=== PATIENT | female | born 1945 | race Caucasian/White ===

== ENCOUNTER 2020-06-11 13:18 | Inpatient (IN) | payer MEDICARE, OTHER ==
[~2020-06-11 13:18] MED LIST: ACETAMINOPHEN-1 EAC1 PO; ALDACTONE25 MG PO; ARICEPT5 MG PO; ASPIR 8181 MG PO; ASPIRIN CHEWABL81 MG PO; CEFUROXIME250 MG PO; COREG6.25 MG PO; ELIQUIS 5 MG TAB5 MG PO; FERROUS SULFAT325 M2 PO; FLAGYL500 MG PO; HYDROCODON-ACE1 EAC4 PO; ISOSORBIDE MONO30 MG PO; LASIX40 MG PO; LEVAQUIN500 MG PO; LIPITOR TAB 2020 MG PO; LISINOPRIL2.5 MG PO; LOPRESSOR 25 MG25 MG PO; LOPRESSOR 50 MG50 MG PO; MELATONIN10 M2 PO; METHYLPHENIDATE10 M1 PO; NORVASC 5 MG TAB5 MG PO; NUVIGIL250 MG PO; PEPCID20 MG PO; PHENERGAN 12.12.5 M1 PO; PREDNISONE50 MG PO; PROTONIX 40 MG40 M1 PO; RITALIN LA20 MG PO; TESSALON PERLE100 MG PO; TOFRANIL 50 MG50 MG PO; TOFRANIL50 MG PO; TYLENOL W/CODEIN1 E1 PO; VENTOLIN HFA 66.7 GM INH; VIBRAMYCIN100 MG PO; ZANTAC150 MG PO; ZYRTEC10 MG PO
[2020-06-11 15:38] LABS: HEMOGLOBIN 10.9 gm/dl (12.3-15.3); RED BLOOD COUNT 3.42 M/UL (4.00-5.10); WHITE BLOOD COUNT 8.4 K/UL (4.5-11.0)
[2020-06-11 16:00] LABS: BUN/CREATININE RATIO 20 (0-10)
[2020-06-12 05:21] LABS: BUN/CREATININE RATIO 24 (0-10)
[2020-06-12 05:30] LABS: HEMOGLOBIN 9.1 gm/dl (12.3-15.3)
[2020-06-13 14:47] LABS: HEMOGLOBIN 10.1 gm/dl (12.3-15.3); RED BLOOD COUNT 3.18 M/UL (4.00-5.10); WHITE BLOOD COUNT 7.3 K/UL (4.5-11.0)
[2020-06-14 04:26] LABS: HEMOGLOBIN 9.4 gm/dl (12.3-15.3); RED BLOOD COUNT 2.98 M/UL (4.00-5.10); WHITE BLOOD COUNT 7.7 K/UL (4.5-11.0)
[2020-06-14] MEDS ORDERED: LASIX40 MG PO (12:54)
== END 2020-06-14 15:30 | disposition home or self-care (01) | DRG 683 ==
LOC: ER1 13:18 → M/S 21:26 → CDU 21:26 → M/S 06-12 07:56
PROVIDERS: Emergency Medicine; Internal Medicine; Physician Assistant; ADMIT Internal Medicine
DX: N17.9 Acute kidney failure, unspecified (principal); I13.0 Hypertensive heart and chronic kidney disease with heart failure and stage 1 through stage 4 chronic kidney disease, or unspecified chronic kidney disease; I50.32 Chronic diastolic (congestive) heart failure; E87.1 Hypo-osmolality and hyponatremia; E87.2 Acidosis; I25.10 Atherosclerotic heart disease of native coronary artery without angina pectoris; I48.91 Unspecified atrial fibrillation; J44.9 Chronic obstructive pulmonary disease, unspecified; E78.5 Hyperlipidemia, unspecified; N18.30 Chronic kidney disease, stage 3 unspecified; K57.90 Diverticulosis of intestine, part unspecified, without perforation or abscess without bleeding; D64.9 Anemia, unspecified; Z20.822 Contact with and (suspected) exposure to COVID-19; Z95.1 Presence of aortocoronary bypass graft; Z95.2 Presence of prosthetic heart valve; Z99.81 Dependence on supplemental oxygen; E86.0 Dehydration; Z79.899 Other long term (current) drug therapy; Z90.710 Acquired absence of both cervix and uterus; Z98.890 Other specified postprocedural states; Z83.3 Family history of diabetes mellitus; Z87.891 Personal history of nicotine dependence; G47.419 Narcolepsy without cataplexy
CPT/HCPCS: 36415; 71045; 80048; 80053; 80307; 81001; 82550; 82553; 82570; 83874; 83880; 83930; 83935; 84156; 84295; 84300; 84484; 85014; 85018; 85025; 85652; 86140; 87086; 93005; 99284; J1650; J7030; U0002

== ENCOUNTER → 2020-07-27 | Outpatient (CLI) | payer MEDICARE, OTHER | LOC: RAD 11:38 | DX: R06.00 Dyspnea, unspecified (principal); I25.10 Atherosclerotic heart disease of native coronary artery without angina pectoris; J90 Pleural effusion, not elsewhere classified | CPT/HCPCS: 71046 ==

== ENCOUNTER 2020-11-09 22:20 | Inpatient (IN) | payer MEDICARE, OTHER ==
[~2020-11-09] VITALS: Ht 167.6 cm; Wt 59.0 kg
[2020-11-09 23:24] LABS: HEMOGLOBIN 10.7 gm/dl (12.3-15.3); RED BLOOD COUNT 3.66 M/UL (4.00-5.10); WHITE BLOOD COUNT 9.3 K/UL (4.5-11.0)
[2020-11-09 23:55] LABS: BUN/CREATININE RATIO 19 (0-10)
[2020-11-10 09:24] LABS: HEMOGLOBIN 9.7 gm/dl (12.3-15.3); RED BLOOD COUNT 3.34 M/UL (4.00-5.10); WHITE BLOOD COUNT 6.2 K/UL (4.5-11.0)
[2020-11-10] MEDS ORDERED: METOPROLOL SUCC25 MG PO (12:52)
[2020-11-10] MEDS ORDERED: ASPIRIN EC81 MG PO (12:53)
[2020-11-10] MEDS ORDERED: HYDROCODON-ACE1 EAC4 PO (12:56)
[2020-11-10] MEDS ORDERED: ALDACTONE 25MG25 MG PO (12:57)
[2020-11-10] MEDS ORDERED: FUROSEMIDE40 MG PO (23:53)
== END 2020-11-11 16:30 | disposition home or self-care (01) | DRG 177 ==
LOC: ER1 22:20 → CDU 11-10 03:39 → MED SURG 4 11-10 18:01
PROVIDERS: Emergency Medicine; Internal Medicine; ADMIT Internal Medicine
PROC: 8E0ZXY6 Isolation (ICD-10-PCS; principal; 2020-11-10)
DX: U07.1 COVID-19 (principal); J12.82 Pneumonia due to coronavirus disease 2019; J44.0 Chronic obstructive pulmonary disease with (acute) lower respiratory infection; N17.9 Acute kidney failure, unspecified; E87.1 Hypo-osmolality and hyponatremia; E78.5 Hyperlipidemia, unspecified; I12.9 Hypertensive chronic kidney disease with stage 1 through stage 4 chronic kidney disease, or unspecified chronic kidney disease; E86.0 Dehydration; E87.6 Hypokalemia; I25.10 Atherosclerotic heart disease of native coronary artery without angina pectoris; I48.0 Paroxysmal atrial fibrillation; I35.0 Nonrheumatic aortic (valve) stenosis; N18.9 Chronic kidney disease, unspecified; D63.1 Anemia in chronic kidney disease; Z95.5 Presence of coronary angioplasty implant and graft; Z95.4 Presence of other heart-valve replacement; Z88.0 Allergy status to penicillin; Z98.890 Other specified postprocedural states; Z83.3 Family history of diabetes mellitus; Z79.899 Other long term (current) drug therapy; Z79.82 Long term (current) use of aspirin; Z88.2 Allergy status to sulfonamides; Z88.8 Allergy status to other drugs, medicaments and biological substances
CPT/HCPCS: 36415; 71045; 80048; 80053; 80307; 81001; 82550; 82553; 83605; 83690; 83735; 83874; 83880; 84484; 85025; 87040; 87086; 93005; 99285; J0456; J1644; J7030; U0002

== ENCOUNTER 2021-08-13 12:37 | Emergency (ER) | payer MEDICARE, OTHER ==
[~2021-08-13 12:37] MED LIST changes: +ALDACTONE 25MG25 MG PO; +ASPIRIN EC81 MG PO; +FUROSEMIDE40 MG PO; +METOPROLOL SUCC25 MG PO
[2021-08-13] MEDS ORDERED: ENDOCET 5-3251 EACH PO (18:15)
== END 2021-08-13 18:00 | disposition home or self-care (01) ==
LOC: ER1 12:37
DX: S22.42XA Multiple fractures of ribs, left side, initial encounter for closed fracture (principal); I51.9 Heart disease, unspecified; Z95.1 Presence of aortocoronary bypass graft; Z90.710 Acquired absence of both cervix and uterus; W19.XXXA Unspecified fall, initial encounter
CPT/HCPCS: 70450; 71101; 72125; 99284